=== PATIENT | female | born 1965 ===

== ENCOUNTER 2018-04-18 09:53 | Outpatient (CLI) | payer OTHER | END 2018-04-18 10:02 | disposition home or self-care (01) | LOC: LAB 09:53 → RAD 09:53 → LAB 10:02 | DX: K57.20 Diverticulitis of large intestine with perforation and abscess without bleeding (principal); R10.32 Left lower quadrant pain ==

== ENCOUNTER 2019-07-14 09:05 | Day surgery (SDC) | payer OTHER | END 2019-07-14 15:08 | disposition home or self-care (01) | LOC: AMB-ENDOS 09:05 | DX: K62.89 Other specified diseases of anus and rectum (principal) ==